=== PATIENT | male | born 1955 | race Caucasian/White ===

== ENCOUNTER 2021-04-09 08:54 | Emergency (ER) | payer OTHER ==
[~2021-04-09] VITALS: Ht 177.8 cm; Wt 108.0 kg
[2021-04-09] MEDS ORDERED: GUAIFENESIN AC PO (11:14)
[2021-04-09] MEDS ORDERED: VENTOLIN HFA IN (11:14)
[2021-04-09] MEDS ORDERED: ZPAK PO (11:14)
[2021-04-09] MEDS ORDERED: MEDDOSEPAK PO (11:14)
[2021-04-09 11:40] VITALS: BP 150/89
== END 2021-04-09 11:40 | disposition home or self-care (01) | DRG 203 ==
LOC: ED 08:54 → EDBD 08:54 → ED 10:04
DX: J20.9 Acute bronchitis, unspecified (principal); I10 Essential (primary) hypertension; F17.210 Nicotine dependence, cigarettes, uncomplicated; F17.290 Nicotine dependence, other tobacco product, uncomplicated; Z20.822 Contact with and (suspected) exposure to COVID-19